=== PATIENT | male | born 1980 ===

== ENCOUNTER → 2023-07-01 08:08 | Outpatient (REF) | payer BC, SELFPAY | LOC: ANHLAB 08:08 | PROVIDERS: Visit Provider Plastic Surgery | DX: L72.0 Epidermal cyst (principal); R22.2 Localized swelling, mass and lump, trunk | CPT/HCPCS: 88304 ==

== ENCOUNTER → 2023-07-28 08:59 | Outpatient (REF) | payer BC, SELFPAY | LOC: ANHLAB 08:59 | PROVIDERS: Visit Provider Plastic Surgery | DX: D23.72 Other benign neoplasm of skin of left lower limb, including hip (principal) | CPT/HCPCS: 88305 ==